=== PATIENT | female | born 1980 | race Caucasian/White ===

== ENCOUNTER 2016-08-01 22:17 | Emergency (ER) | payer OTHER ==
[2016-08-02] MEDS ORDERED: ACETAMINOPHEN 500 MG TABLET ONE (01:05)
[2016-08-02] MEDS ORDERED: LACTATED RINGERS 1,000 ML ONE (01:47)
[2016-08-02] MEDS ORDERED: VANCOMYCIN HCL 1 G/20 ML VIAL ONE (01:48)
[2016-08-02] MEDS ORDERED: SODIUM CHLORIDE 0.9% 500 ML ONE (01:49)
[2016-08-02] MEDS ORDERED: CEFTRIAXONE 1 GRAM DUPLEX 50 ML IV ONE (01:57)
[2016-08-02] MEDS ORDERED: DEXAMETHASONE SOD PHOS 10 MG/1 ML VIAL ONE (02:10)
[2016-08-02 02:40] LABS: ABSOLUTE NEUTROPHIL COUNT 16.2 K/mm3 (1.8-7.7); BASO # 0.1 K/mm3 (0.0-0.2); BASO % 0.3 % (0.2-1.0); EOS # 0.1 (0.0-0.5); EOS % 0.3 % (0.9-2.9); HEMATOCRIT 36.7 % (37.0-47.0); HEMOGLOBIN 12.6 gm/l (12.0-16.0); IMM NEUT # 0.1 K/mm3 (0-0.2); IMM NEUT% 0.4 % (0-1); LYMPH # 1.9 (1.0-4.8); LYMPH % 9.9 % (15-45); MEAN CELL VOLUME 86.8 fl (81.0-99.0); MEAN CORPUSCULAR HEMOGLOBIN 29.8 pg (27.0-31.0); MEAN CORPUSCULAR HGB CONC 34.3 g/dl (33.0-37.0); MEAN PLATELET VOLUME 10.4 fl (7.4-10.4); MONO # 1.2 (0.0-0.8); MONO % 6.2 % (4-12); NEUT % 82.9 % (43-75); PLATELET COUNT 233 K/mm3 (130-400); RED CELL DISTRIBUTION WIDTH 13.4 % (11.5-14.5)
[2016-08-02 02:59] LABS: ALB/GLOB RATIO 1.3 (>1.0); ALBUMIN 3.8 gm/dL (3.5-5.7); CALCIUM 9.1 mg/dL (8.6-10.3)
--- NOTE | 2016-08-02 13:35 | RAD ---
SOFT TISSUE NECK COMPARISON: None. HISTORY: Increased fatigue, sore throat, and fever for 2 days. 12 weeks . FINDINGS: Views: AP and lateral views of the soft tissues of the neck. Hypopharynx: Normal. Larynx: Normal. Trachea: Normal. Prevertebral soft tissues: Normal. Epiglottis: Normal. Hyoid bone: Normal. Cervical spine: Incidentally noted elongated C7 transverse process. IMPRESSION: 1. Normal 2 views of the soft tissues of the neck.
== END 2016-08-02 03:37 | disposition short-term general hospital (02) ==
LOC: ED 22:17
DX: O26.891 Other specified pregnancy related conditions, first trimester (principal); Z3A.12 12 weeks gestation of pregnancy; J05.10 Acute epiglottitis without obstruction; O99.331 Smoking (tobacco) complicating pregnancy, first trimester; F17.210 Nicotine dependence, cigarettes, uncomplicated; Z91.040 Latex allergy status; Z88.0 Allergy status to penicillin; Z91.048 Other nonmedicinal substance allergy status